=== PATIENT | male | born 1985 | race Two or more races ===

== ENCOUNTER 2019-07-05 12:59 | Emergency (ER) | payer SELFPAY ==
[~2019-07-05] VITALS: Ht 188 cm; Wt 77.0 kg
[2019-07-05 13:02] VITALS: BP 131/78
[2019-07-05] MEDS ORDERED: LORAZEPAM 0.5MG TABLET PO ONE (13:45)
== END 2019-07-05 14:07 | disposition home or self-care (01) ==
LOC: ER 13:12
DX: F41.9 Anxiety disorder, unspecified (principal)
CPT/HCPCS: 99283

== ENCOUNTER 2021-09-16 20:52 | Emergency (ER) | payer MEDICAID ==
[~2021-09-16] VITALS: Ht 188 cm; Wt 100.1 kg
[2021-09-16] MEDS ORDERED: IBUPROFEN 400MG TABLET PO ONE (23:00)
[2021-09-17] MEDS ORDERED: IBUP-2028 MT (01:06)
[2021-09-17 01:29] VITALS: BP 135/79
== END 2021-09-17 01:30 | disposition home or self-care (01) ==
LOC: ER 20:52
DX: B34.9 Viral infection, unspecified (principal); R51.9 Headache, unspecified; R50.9 Fever, unspecified; J02.9 Acute pharyngitis, unspecified; Z20.822 Contact with and (suspected) exposure to COVID-19
CPT/HCPCS: 87070; 87426; 87430; 87804; 99283; C9803